=== PATIENT | female | born 1985 | race Asian ===

== ENCOUNTER → 2024-04-13 06:28 | Day surgery (SDC) | payer BC, SELFPAY | LOC: GI 06:28 | PROVIDERS: ATTENDING PHYSICIAN Internal Medicine | DX: Z12.11 Encounter for screening for malignant neoplasm of colon (principal); K63.5 Polyp of colon; R10.12 Left upper quadrant pain; K29.70 Gastritis, unspecified, without bleeding; Z86.010 Personal history of colon polyps | CPT/HCPCS: 45380; 43239; 88305; 88342 ==